=== PATIENT | female | born 1965 | race Two or more races ===

== ENCOUNTER 2023-04-21 11:56 | Emergency (ER) | payer OTHER ==
[~2023-04-21] VITALS: Ht 157.5 cm; Wt 52.2 kg
[2023-04-21] MEDS ORDERED: JENTADUETO 2.51 EAC2 PO (12:24)
[2023-04-21] MEDS ORDERED: LANTUS SOL100 UNIT/1 (12:25)
[2023-04-21] MEDS ORDERED: HUMALOG100 UNIT/2 SQ (12:26)
[2023-04-21] MEDS ORDERED: MOLNUPIRAVIR (200 MG PO (16:03)
== END 2023-04-21 16:19 | disposition home or self-care (01) ==
LOC: ER 11:56
DX: U07.1 COVID-19 (principal); E11.9 Type 2 diabetes mellitus without complications; Z79.4 Long term (current) use of insulin; Z79.84 Long term (current) use of oral hypoglycemic drugs; Z88.0 Allergy status to penicillin